=== PATIENT | female | born 1930 | race Caucasian/White ===

== ENCOUNTER → 2016-07-08 | Outpatient (CLI) | payer MEDICARE, BC ==
--- NOTE | 2016-07-08 14:34 | RAD ---
Hard lump to the right of the sternal notch. Grayscale imaging was performed. Examination was targeted to the area of interest where the patient reports a lump. No soft tissue mass or abnormality is seen. IMPRESSION: Normal targeted ultrasound of the upper anterior chest
== END | disposition home or self-care (01) ==
LOC: US 12:41
PROVIDERS: ATTEND Family Medicine
DX: R22.1 Localized swelling, mass and lump, neck (principal)
CPT/HCPCS: 76536

== ENCOUNTER 2016-08-10 07:58 | Emergency (ER) | payer OTHER, MEDICARE, BC ==
--- NOTE | 2016-08-10 08:09 | PHYS DOC ---
Adult General HPI HPI Patient is a 86-year-old female who was on her way to work and tripped and fell down some stairs face first. Patient sustained trauma to her face and a skin tear to her right wrist. Patient denies loss of consciousness. Patient denies any injuries to the shoulders or hips. Patient denies any chest pain or shortness of breath. Patient has no other symptoms. Patient's last tetanus was updated over 7 years ago. Pertinent exam findings: 2 small 1 cm puncture wounds to the forehead with expanding hematoma and active bleeding Small 2 cm skin tear to the right wrist over the distal radius ED course: Patient seen and evaluated in the emergency room and 2 simple interrupted 5-0 nylon stitches were placed to help control the bleeding of expanding hematoma on the forehead 0844: She went for CT scan of the head/face/C-spine 0940: 2 stitches were used in other puncture wound on the right forehead. Patient was reevaluated and which she is asymptomatic is ready go home. 0950: Patient's wound was bandaged up and pressure dressing was applied. Pertinent exam findings: Non displaced nasal bone fractures Intracranial hemorrhage or fracture MDD: After reviewing the chart, chief complaint/history of present illness/PMH, radiological results do not believe the patient sustained a significant intracranial hemorrhage or C-spine injury wanting further workup and admission at this time. Patient did sustain minimally displaced nasal bone fractures but can be followed up as an outpatient. Patient also sustained a forehead hematoma with 2 puncture wounds that were sutured. On reevaluation the patient is asymptomatic. Patient is ready to go home. Patient is stable for discharge. Additional verbal discharge instructions were provided to the patient and that if symptoms get worse or any new symptoms arise that are worrisome to the patient she is to return to the emergency room immediately. Review of Systems Review of Systems Constitutional: Denies fever or chills [] Eyes: Denies change in visual acuity, redness, or eye pain [] HENT: Denies nasal congestion or sore throat [] Respiratory: Denies cough or shortness of breath [] Cardiovascular: No additional information not addressed in HPI [] GI: Denies abdominal pain, nausea, vomiting, bloody stools or diarrhea [] : Denies dysuria or hematuria [] Musculoskeletal: Denies back pain or joint pain [] Integument: Lacerations to the face and skin tear to the right wrist [] Current Medications Current Medications Current Medications Medications (Trade) Dose Ordered Sig/Ryan Start Time Stop Time Status Last Admin Dose Admin Tetanus/ Diphtheria Toxoids Adsorbed (Tenivac Vial) 0.5 ml ONCE ONCE 08/10/16 08:15 08/10/16 08:16 UNV Physical Exam Physical Exam Constitutional: Well developed, well nourished, no acute distress, non-toxic appearance. [] HENT: Normocephalic, 2 lacerations to the forehead, bilateral external ears normal, oropharynx moist, no oral exudates, nose normal. [] Eyes: PERRLA, EOMI, conjunctiva normal, no discharge. [] Neck: Normal range of motion, no tenderness, supple, no stridor. [] Cardiovascular:Heart rate regular rhythm, no murmur [] Lungs & Thorax: Bilateral breath sounds clear to auscultation [] Abdomen: Bowel sounds normal, soft, no tenderness, no masses, no pulsatile masses. [] Skin: Warm, dry, no erythema, no rash. [] Back: No tenderness, no CVA tenderness. [] Extremities: No tenderness, no cyanosis, no clubbing, ROM intact, no edema. Small skin tear to the right wrist over the distal radius [] Neurologic: Alert and oriented X 3, normal motor function, normal sensory function, no focal deficits noted. [] Psychologic: Affect normal, judgement normal, mood normal. [] EKG EKG [] Radiology/Procedures Radiology/Procedures Laceration repair 1 Indication: Control bleeding to the forehead Area: two 1 cm puncture lacerations to the forehead expanding hematoma Procedure: Approximately 5 mL's of 2% lidocaine with epinephrine was injected after area was wiped with alcohol prep. 2 simple interrupted sutures with 5-0 nylon were placed to control bleeding. Patient tolerated procedure well. Standing hematoma to the left forehead Laceration repair 2 2 cm laceration to right forehead procedure: The area was cleaned and approximately 3 mL's of 2% lidocaine with epi was injected into simple interrupted 5-0 nylon stitches were placed patient tolerated procedure well Radiology: CT Head/face/C-spine: Head NAD CT cervical spine: Findings A significant soft tissue finding in the neck is not seen. There is a 1 cm mass associated with the right lobe of the thyroid. This is likely incidental but could be further evaluated with nonemergent ultrasound if clinically warranted. Review of axial images shows no fracture. There are spondylitic changes. Uncovertebral degenerative change and facet degenerative change is seen at several levels. Review of reformatted images similarly shows degenerative change but no acute finding is apparent. 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 No acute finding seen. Intracranially no acute finding seen. Mildly distracted nasal bone fracture. No additional facial fracture seen[] Course & Med Decision Making Course & Med Decision Making Pertinent Labs and Imaging studies reviewed. (See chart for details) [] Dragon Disclaimer Dragon Disclaimer This chart was dictated in whole or in part using Voice Recognition software in a busy, high-work load, and often noisy Emergency Department environment. It may contain unintended and wholly unrecognized errors or omissions. Departure Departure: Disposition: 01 HOME, SELF-CARE Condition: IMPROVED Referrals: SELENE DO MD (PCP) Patient Instructions: Facial Laceration, [id number], Nasal Fracture GABRIEL NATHAN DO August 10, 2016 08:09
[2016-08-10] MEDS ORDERED: TETANUS AND DIPHTHERIA TOX/PF 0.5 ML VIAL. VAX IM ONE (08:15)
--- NOTE | 2016-08-10 09:09 | RAD ---
Indication fall. Closed head injury. Facial fracture. Neck injury The head, maxillofacial structures and cervical spine were imaged. Images of the maxillofacial structures and cervical spine were reformatted in the coronal and sagittal planes. No prior imaging of the head is available. CT head: Findings. Soft tissue swelling over the forehead is noted. An acute calvarial finding is not seen. There is no subdural or epidural hematoma. Ventricles and sulci are normal given the patient's age. There is no mass or midline shift. No hemorrhage is seen. Intracranially no acute or significant finding is seen. Maxillofacial CT: Findings The mandible appears unremarkable. Zygomatic arches appear normal. The visualized paranasal sinuses appear normal. No maxillary fracture is seen. The medial and lateral byers of the orbits appear normal. There is a minimally distracted nasal bone fracture. No additional facial fracture is seen. CT cervical spine: Findings A significant soft tissue finding in the neck is not seen. There is a 1 cm mass associated with the right lobe of the thyroid. This is likely incidental but could be further evaluated with nonemergent ultrasound if clinically warranted. Review of axial images shows no fracture. There are spondylitic changes. Uncovertebral degenerative change and facet degenerative change is seen at several levels. Review of reformatted images similarly shows degenerative change but no acute finding is apparent. 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 No acute finding seen. Intracranially no acute finding seen. Mildly distracted nasal bone fracture. No additional facial fracture seen PQRS Compliance Statement: One or more of the following individualized dose reduction techniques were utilized for this examination: 1. Automated exposure control 2. Adjustment of the mA and/or kV according to patient size 3. Use of iterative reconstruction technique
[2016-08-10] MEDS ORDERED: DIPHTH,PERTUSS(ACELL),TET TOX 0.5 ML DISP.SYRIN. VAX IM ONE (09:15)
[2016-08-10 10:10] VITALS: BP 124/85
== END 2016-08-10 10:10 | disposition home or self-care (01) ==
LOC: ER 07:58
DX: S02.2XXA Fracture of nasal bones, initial encounter for closed fracture (principal); S01.81XA Laceration without foreign body of other part of head, initial encounter; S61.511A Laceration without foreign body of right wrist, initial encounter; W10.9XXA Fall (on) (from) unspecified stairs and steps, initial encounter; Y93.89 Activity, other specified; Y92.89 Other specified places as the place of occurrence of the external cause; Y99.8 Other external cause status
CPT/HCPCS: 12013; 70450; 70486; 72125; 90471; 90715; 99284-25

== ENCOUNTER 2016-08-16 09:54 | Emergency (ER) | payer OTHER, MEDICARE, BC ==
[~2016-08-16] VITALS: Ht 157.5 cm; Wt 67.6 kg
--- NOTE | 2016-08-16 10:19 | PHYS DOC ---
Past History Past Medical History: High Cholesterol, Hypertension Past Surgical History: Appendectomy, Other Alcohol Use: None Drug Use: None Adult General Chief Complaint Chief Complaint: suture removal HPI HPI 86-year-old female presenting to the emergency department for suture removal after having a fall and having sutures placed after sustaining head injury and laceration to the forehead. The wound is healing up well and appropriate. She does have mild chest pain. She describes the pain as sharp worse with deep inspiration and palpation the chest wall associated with ecchymosis after the fall. ROS was negative for abdominal pain nausea vomiting fevers chills headache diaphoresis. All other review of systems is negative unless otherwise noted in history of present illness. ED Course: The patient does have chest pain after the fall that is worse with palpation of the chest wall and associated with mild bruising. I reviewed the patient's release medical chart and at that time she was not having chest pain or shortness of breath so we obtained his chest x-ray and EKG. These were unremarkable. The pt did not desire to be evaluated for a heart attack. She believes her pain is from the fall. Clinical presentation consistent with pain from fall as well. The patient was then discharged home in stable condition to follow up with their primary care physician over the next 2-3 days. They were to return if their symptoms worsened or if they were concerned for any reason. [id number] discharge instructions and return precautions were given. Patient' s questions were answered to their satisfaction. Patient is comfortable plan. Review of Systems Review of Systems SEE ABOVE. Allergies Allergies Allergies Coded Allergies Type Severity Reaction Last Updated Verified No Known Drug Allergies 08/10/16 No Physical Exam Physical Exam Constitutional: Well developed, well nourished, no acute distress, non-toxic appearance. [] HENT: Normocephalic, patient has healing laceration to the forehead. Sutures were removed., bilateral external ears normal, oropharynx moist, no oral exudates, nose normal. Eyes: PERRLA, EOMI, conjunctiva normal, no discharge. [] Neck: Normal range of motion, no tenderness, supple, no stridor. Cardiovascular:Heart rate regular rhythm, no murmur [] Lungs & Thorax: Bilateral breath sounds clear to auscultation and mild ecchymosis to the anterior chest wall with tenderness to palpation. Nontender ribs. Abdomen: Bowel sounds normal, soft, no tenderness, no masses, no pulsatile masses. [] Skin: Warm, dry, no erythema, no rash. Back: No tenderness, no CVA tenderness. [] Extremities: No tenderness, no cyanosis, no clubbing, ROM intact, no edema. Neurologic: Alert and oriented X 3, normal motor function, normal sensory function, no focal deficits noted. Psychologic: Affect normal, judgement normal, mood normal. [] EKG EKG [] Radiology/Procedures Radiology/Procedures [] Course & Med Decision Making Course & Med Decision Making Pertinent Labs and Imaging studies reviewed. (See chart for details) [] Dragon Disclaimer Dragon Disclaimer This chart was dictated in whole or in part using Voice Recognition software in a busy, high-work load, and often noisy Emergency Department environment. It may contain unintended and wholly unrecognized errors or omissions. Departure Departure: Impression: Primary Impression: Chest wall pain Additional Impressions: Laceration Visit for suture removal Disposition: HOME, SELF-CARE Condition: STABLE Referrals: SELENE DO MD (PCP) Patient Instructions: Chest Wall Pain, Fall Prevention and Home Safety Additional Instructions: Thank you for allowing us to participate in your care today. Followup with your primary care physician in 3 days if your symptoms do not improve. If you do not have a primary care provider you can ask for a list of our primary care providers. Return to the emergency department you have any new or concerning findings. This should be evaluated by the primary care physician and any necessary consulting services for continued management within a few days after discharge. Return to emergency room if you have any new or concerning symptoms including but not limited to fever, chills, nausea, vomiting, intractable pain, any new rashes, chest pain, shortness of air, uncontrolled bleeding, difficulty breathing, and/or vision loss. Problem Qualifiers RINA GRAY MD August 16, 2016 10:19
--- NOTE | 2016-08-16 10:39 | EKG ---
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
--- NOTE | 2016-08-16 11:11 | RAD ---
Exam: PA and lateral chest radiograph History: Chest pain after fall this morning. Comparison: None. Findings: Cardiomediastinal silhouette is within normal limits for size. Bilateral lung celeste are free of focal infiltrate. No pleural effusion is seen. Impression: No acute cardiopulmonary process.
[2016-08-16 11:25] VITALS: BP 126/69
== END 2016-08-16 11:30 | disposition home or self-care (01) ==
LOC: ER 09:54
DX: R07.89 Other chest pain (principal); S01.81XD Laceration without foreign body of other part of head, subsequent encounter; E78.00 Pure hypercholesterolemia, unspecified; I10 Essential (primary) hypertension; X58.XXXD Exposure to other specified factors, subsequent encounter; Y92.89 Other specified places as the place of occurrence of the external cause; Y99.8 Other external cause status
CPT/HCPCS: 71020; 93005; 99284

== ENCOUNTER 2016-08-23 09:53 | Emergency (ER) | payer OTHER, MEDICARE, BC ==
[~2016-08-23] VITALS: Ht 162.6 cm; Wt 66.7 kg
[2016-08-23 10:07] VITALS: BP 153/74
--- NOTE | 2016-08-23 10:32 | PHYS DOC ---
Text Text Patient will be started on oral antibiotics for 7 days. Keep clean and dry. Follow up with her primary care physician for wound recheck on mon or monday. Return for worsening redness, increase in swelling or other concerns. Patient agreeable to this plan at this time. Wound dressing placed. General Chief Complaint: SUTURE/STAPLE REMOVAL Stated Complaint: SUTURE REMOVAL Time Seen by MD: 09:56 Source: patient Exam Limitations: no limitations Problems: History of Present Illness Occurred: other (sutures placed here on 08/10/16) Severity: mild Injuries/Pain Location: face Context: tripped Loss of Consciousness: no loss of consciousness Associated Symptoms: other (drainage noted by patient on monday. ) Allergies: Coded Allergies: No Known Drug Allergies (Unverified , 08/10/16) Review of Systems Constitutional: no symptoms reported Eyes: no symptoms reported Ears, Nose, Mouth, Throat: no symptoms reported Respiratory: no symptoms reported Cardiovascular: no symptoms reported Skin: other (redness and drainage to the forehead laceration. ) All Other Systems: Reviewed and Negative Physical Exam General Appearance: WD/WN, no apparent distress Head: swelling, tenderness, other (purulent drainage from the left forehead wound. Redness and swelling with tenderness to palpation. Sutures removed. Large defect remains to left wound) Eyes: bilateral eye normal inspection, bilateral eye PERRL, bilateral eye EOMI Ears, Nose, Mouth, Throat: hearing grossly normal Neck: non-tender, full range of motion Cardiovascular/Respiratory: regular rate, rhythm Neurologic/Psychiatric: filling carrier II-XII nml as tested, no motor/sensory deficits, alert, normal mood/affect, oriented x 3 LA SHARMA MD Aug 23, 2016 10:32
[2016-08-23] MEDS ORDERED: CEPH-264 PO ×2 (10:39→10:43)
== END 2016-08-23 10:55 | disposition home or self-care (01) ==
LOC: ER 09:53
DX: S01.81XD Laceration without foreign body of other part of head, subsequent encounter (principal); X58.XXXD Exposure to other specified factors, subsequent encounter; Y99.8 Other external cause status; Y92.89 Other specified places as the place of occurrence of the external cause
CPT/HCPCS: 99283

== ENCOUNTER 2018-06-18 12:48 | Emergency (ER) | payer MEDICARE, BC ==
[~2018-06-18] VITALS: Ht 162.6 cm; Wt 66.7 kg
[~2018-06-18 12:48] MED LIST: CEPH-264 PO
[2018-06-18 12:59] VITALS: BP 142/92
[2018-06-18] MEDS ORDERED: ACETAMINOPHEN 325 MG TABLET PO ONE (13:15)
--- NOTE | 2018-06-18 13:38 | RAD ---
Left knee, 3 views, 06/18/2018: HISTORY: Fall, swelling, pain The bony structures are demineralized. There is mild spurring at the knee joint with chondrocalcinosis. There is moderate degenerative change at the patellofemoral articulation. No acute fracture or dislocation is identified. There is considerable soft tissue swelling in the prepatellar region. IMPRESSION: 1. Demineralization. 2. Degenerative change with chondrocalcinosis. 3. No acute bony abnormality is detected. Electronically signed by: Andrew Banks MD (06/18/2018 1:35 PM) [facility]
[2018-06-18] MEDS ORDERED: ACET325T9 PO (14:01)
[2018-06-18] MEDS ORDERED: TRAM50TA PO (14:01)
--- NOTE | 2018-06-18 14:01 | PHYS DOC ---
Past History Past Medical History: Hypertension Past Surgical History: No Surgical History Smoking: Non-smoker Alcohol Use: None Drug Use: None Adult General Chief Complaint Chief Complaint: KNEE SWELLING HPI HPI Patient is a 88-year-old female who presents with left knee pain and swelling. Patient had a mechanical trip and fall yesterday and applied ice. Today noted that the knee is significantly more swollen. Increased pain with movement and bending. Patient denies any hip or ankle pain. She has taken no pain medicine other than her 81 mg daily aspirin. Reports that the pain is mild to moderate. No numbness or tingling.[] Review of Systems Review of Systems Constitutional: Denies fever or chills [] Eyes: Denies change in visual acuity, redness, or eye pain [] HENT: Denies nasal congestion or sore throat [] Respiratory: Denies cough or shortness of breath [] Cardiovascular: No chest pain or palpitations[] GI: Denies abdominal pain, nausea, vomiting, bloody stools or diarrhea [] : Denies dysuria or hematuria [] Musculoskeletal: Denies back pain, see history of present illness[] Integument: Denies rash or skin lesions [] Neurologic: Denies headache, focal weakness or sensory changes [] Endocrine: Denies polyuria or polydipsia [] All other systems were reviewed and found to be within normal limits, except as documented in this note. Current Medications Current Medications Current Medications Medications (Trade) Dose Ordered Sig/[facility] Start Time Stop Time Status Last Admin Dose Admin Acetaminophen (Tylenol) 650 mg 1X ONCE 06/18/18 13:15 06/18/18 13:16 DC 06/18/18 13:25 650 MG Allergies Allergies Allergies Coded Allergies Type Severity Reaction Last Updated Verified No Known Drug Allergies 08/10/16 No Physical Exam Physical Exam Constitutional: Well developed, well nourished, no acute distress, non-toxic appearance. [] HENT: Normocephalic, atraumatic, bilateral external ears normal, oropharynx moist, no oral exudates, nose normal. [] Eyes: PERRLA, EOMI, conjunctiva normal, no discharge. [] Neck: Normal range of motion, no tenderness, supple, no stridor. [] Cardiovascular:Heart rate regular rhythm, no murmur [] Lungs & Thorax: Bilateral breath sounds clear to auscultation [] Abdomen: Not examined. [] Skin: Warm, dry, no erythema, no rash. [] Back: No tenderness, no CVA tenderness. [] Extremities: Patient's left knee shows significant effusion, limited range of motion, no varus or valgus laxity, negative drawer, negative Hal test, a joint above and a joined below the knee were evaluated and were normal. The other 3 extremities show no tenderness, no cyanosis, no clubbing, ROM intact, no edema. [] Neurologic: Alert and oriented X 3, normal motor function, normal sensory function, no focal deficits noted. [] Psychologic: Affect normal, judgement normal, mood normal. [] Current Patient Data Vital Signs Vital Signs Date Time Temp Pulse Resp B/P (MAP) Pulse Ox O2 Delivery O2 Flow Rate FiO2 06/18/18 12:59 100 18 98 Room Air EKG EKG [] Radiology/Procedures Radiology/Procedures Left knee, 3 views, 06/18/2018: HISTORY: Fall, swelling, pain The bony structures are demineralized. There is mild spurring at the knee joint with chondrocalcinosis. There is moderate degenerative change at the patellofemoral articulation. No acute fracture or dislocation is identified. There is considerable soft tissue swelling in the prepatellar region. IMPRESSION: 1. Demineralization. 2. Degenerative change with chondrocalcinosis. 3. No acute bony abnormality is detected. Course & Med Decision Making Course & Med Decision Making Pertinent Labs and Imaging studies reviewed. (See chart for details) ED course: Patient arrived, was placed in bed, and tolerated exam well. She asked for her low dose pain medication which was administered. She was transported to and from radiology without any complications. After the return of the x-ray findings she was placed in an Sourav wrap as well as a knee immobilizer. She was distally neurovascularly intact after the immobilizer was placed. Findings were discussed with the patient who voiced understanding. All questions were answered. She was discharged in improved condition. Clint decision making: There is no evidence of a fracture or dislocation. No evidence of neurologic or vascular compromise. She may have an ACL injury that is unable to be detected at this time due to the swelling and effusion. This is something that can be followed by her primary care team and orthopedics as the effusion results.[] Dragon Disclaimer Dragon Disclaimer This electronic medical record was generated, in whole or in part, using a voice recognition dictation system. Departure Departure: Impression: Primary Impression: Injury of left knee Disposition: HOME, SELF-CARE Condition: IMPROVED Referrals: SELENE DO MD (PCP) Follow-up in 2 days Patient Instructions: Crutch Use, Knee Effusion, Knee Pain Additional Instructions: Follow-up with your primary care physician in 2 days. Apply ice for 15 minutes at a time, at least 4 times a day, for the next 3 days. After that apply heat for 15 minutes at a time, at least 4 times a day as needed. You may weight-bear as tolerated using the crutches. Return to the ER if worsening pain, weakness, or any other concerns. Scripts Tramadol Hcl (TRAMADOL HCL) 50 Mg Tablet 50 MG PO PRN Q6HRS PRN for mod-severe pain, #20 TAB Prov: VILMA BLACK DO 06/18/18 Acetaminophen (TYLENOL) 325 Mg Tablet 1-2 TAB PO QID for pain, #60 TAB 0 Refills Prov: VILMA BLACK DO 06/18/18 Problem Qualifiers Primary Impression: Injury of left knee Encounter type: initial encounter Qualified Codes: S89.92XA - Unspecified injury of left lower leg, initial encounter VILMA BLACK DO Jun 18, 2018 14:01
== END 2018-06-18 14:10 | disposition home or self-care (01) ==
LOC: ER 12:48
DX: S89.92XA Unspecified injury of left lower leg, initial encounter (principal); I10 Essential (primary) hypertension; W01.0XXA Fall on same level from slipping, tripping and stumbling without subsequent striking against object, initial encounter; Y93.89 Activity, other specified; Y92.89 Other specified places as the place of occurrence of the external cause; Y99.8 Other external cause status
CPT/HCPCS: 29505; 73562; 99283

== ENCOUNTER → 2018-06-28 | Outpatient (CLI) | payer MEDICARE, BC ==
[2018-06-18 12:59] VITALS: BP 142/92
[~2018-06-28] MED LIST changes: +ACET325T9 PO; +TRAM50TA PO
--- NOTE | 2018-06-28 17:29 | RAD ---
Clinical indications: Bruit/stenosis. Hypertension. Previous smoker. Duplex sonography of the cervical portion of both carotid arteries was performed including color flow imaging and spectral waveform analysis with flow velocity measurement and elena scale evaluation. Right side: Peak systolic flow velocity of the CCA is 57 cm/sec. Peak systolic flow velocity of the ICA is 84 cm/sec. Thus, the ICA/CCA ratio is 1.5. Peak end diastolic flow velocity of the ICA is 34 cm/sec. The peak systolic velocity of the ECA is 86 cm/sec. Left side: Peak systolic flow velocity of the CCA is 79 cm/sec. Peak systolic flow velocity of the ICA is 84 cm/sec. Thus, the ICA/CCA ratio is 1.06. Peak end diastolic flow velocity of the ICA is 31 cm/sec. Peak systolic flow velocity of the ECA is 225 cm/sec. There is calcified plaque within the left mid CCA and within the left carotid bulb and within the origin of the left ICA which is less than 50%. There is 50-69% stenosis of the proximal left ECA due to calcified plaque. This may account for a bruit. On the right side, there is mild calcified plaque formation within the carotid bulb and origin of the right ICA and origin of the right ECA which is less than 50%.. Antegrade vertebral flow is seen bilaterally. The measurements were made using the NASCET criteria. Impression: Plaque information is seen within the carotid bulbs and proximal ICA on both sides which is less than 50%. There is a 50-69% stenosis of the proximal left ECA which may account for a bruit.. Electronically signed by: Jesse Gaitan MD (06/28/2018 5:26 PM) [place] [id number]
== END | disposition home or self-care (01) ==
LOC: US 12:33
PROVIDERS: ATTEND Family Medicine
DX: I65.23 Occlusion and stenosis of bilateral carotid arteries (principal); I10 Essential (primary) hypertension; Z87.891 Personal history of nicotine dependence
CPT/HCPCS: 93880

== ENCOUNTER → 2021-07-08 | Outpatient (CLI) | payer MEDICARE, BC ==
--- NOTE | 2021-07-08 12:42 | RAD ---
EXAM: Bilateral carotid duplex with waveform analysis. CLINICAL HISTORY: Reason: CAROTID STENOSIS / Spl. Instructions: / History: . . TECHNIQUE: Longitudinal and transverse sonographic images of the bilateral carotid arteries was perfo rmed utilizing grayscale, color and spectral Doppler techniques. COMPARISON: Carotid ultrasound 06/28/2018 FINDINGS: There are calcifications in both carotid bulbs and in the proximal left internal carotid artery. Vertebrals: Antegrade flow bilaterally. Right: PSV CCA (cm/s): 80 PSV ICA (cm/s): 82 EDV ICA (cm/s): 29 PSV ECA (cm/s): 92 ICA/CCA Ratio: 1.0 Left: PSV CCA (cm/s): 68 PSV ICA (cm/s): 76 EDV ICA (cm/s): 25 PSV ECA (cm/s): 92 ICA/CCA Ratio: 1.1 IMPRESSION: Less than 50 percent stenosis of the internal carotid arteries bilaterally. Consensus Panel Segal-scale and Doppler US Criteria for Diagnosis of ICA Stenosis Degree of Stenosis (%) ICA PSV (Cm/sec) Plaque Estimate (%)* Normal <125 None <50 <125 <50 50-69 125-230 >50 >70 but < near occlusion >230 >50 Near occlusion High, low, or undetectable Visible Total occlusion Undetectable Visible, no detectable lumen *Plaque estimate (diameter reduction) with segal-scale and color Doppler US Degree of Stenosis (%) ICA/CCA PSV Ratio ICA EDV (cm/sec) Normal <2.0 <40 <50 <2.0 <40 50-69 2.0-4.0 40-100 >70 but < near occlusion >4.0 >100 Near occlusion Variable Variable Total occlusion Not applicable Not applicable Electronically signed by: Audrey Francisco MD (07/08/2021 12:40 PM) [id number]
== END ==
LOC: US 09:40
PROVIDERS: ATTEND Family Medicine
DX: I65.23 Occlusion and stenosis of bilateral carotid arteries (principal)
CPT/HCPCS: 93880